=== PATIENT | male | born 1980 | race Caucasian/White ===

== ENCOUNTER 2017-04-25 14:45 | Emergency (ER) | payer SELFPAY ==
[~2017-04-25] VITALS: Ht 172.7 cm; Wt 70.3 kg
[2017-04-25] MEDS ORDERED: ONDANSETRON HCL 4 MG/2 ML VIAL IV ONE (15:45)
[2017-04-25] MEDS ORDERED: MORPHINE SULFATE 4 MG/ML SYRG IV ONE ×2 (15:45→17:30)
[2017-04-25] MEDS ORDERED: MORPHINE SULFATE 4 MG/ML SYRG ONE (17:14)
[2017-04-25] MEDS ORDERED: BACITRACIN-POLYMYXIN B TOPICAL OINT UD TOP ONE (17:24)
[2017-04-25 18:00] VITALS: BP 124/62
== END 2017-04-25 18:00 | disposition home or self-care (01) ==
LOC: ER 14:45
DX: S52.512A Displaced fracture of left radial styloid process, initial encounter for closed fracture (principal); S82.402A Unspecified fracture of shaft of left fibula, initial encounter for closed fracture; W18.39XA Other fall on same level, initial encounter; Y93.89 Activity, other specified; Y92.89 Other specified places as the place of occurrence of the external cause; Y99.8 Other external cause status
CPT/HCPCS: 29125; 29515; 73100; 73590; 73600; 96374; 96375; 96376; 99284; J2270; J2405